=== PATIENT | female | born 1995 | race African-American/Black ===

== ENCOUNTER 2019-08-13 11:07 | Outpatient (CLI) | payer OTHER ==
--- NOTE | 2019-08-14 14:19 | NM ---
RADIOIODINE THYROID UPTAKE AND SCAN: 08/14/19 HISTORY: 23-year-old female with thyrotoxicosis, unspecified without thyrotoxic crisis or storm. Hyperthyroidi sm. High free T4 and low THS. RADIOPHARMACEUTICAL: 222 Microcuries of Iodine 123 administered orally. FINDINGS: Planar anterior and anterior oblique images of the thyroid gland were obtained. There is homogeneous increased uptake in both lobes of the thyroid gland without focal cold or hot nodules. The 24 hour uptake measures 57% (normal 10-30%). IMPRESSION: Hyperthyroid Graves disease. POS: AH
== END 2019-08-13 11:08 | disposition home or self-care (01) ==
LOC: NM 11:07
PROVIDERS: ATTEND Internal Medicine Endocrinology, Diabetes & Metabolism
DX: E05.00 Thyrotoxicosis with diffuse goiter without thyrotoxic crisis or storm (principal)
CPT/HCPCS: 78014; A9516

== ENCOUNTER 2019-11-11 12:46 | Outpatient (CLI) | payer OTHER ==
[2019-11-11 13:18] LABS: BHCG - Serum Negative (NEGATIVE); Pregs Control Background? CLEAR/WHITE (CLR/WHITE); Pregs Control Bar Appear? YES (CONTROL BAR)
--- NOTE | 2019-11-11 13:47 | NM ---
Radioiodine thyroid treatment for thyrotoxicosis HISTORY: Hyperthyroidism. FINDINGS: After explaining the procedure, including risks, routine precautions, and alternative treat ments, patient was carefully given a capsule containing 14.5 mCi iodine-131, p.o. The patient ingested the capsule without difficulty and was monitored for approximately 20 minutes pr ior to discharge. She will follow-up clinically with Dr. Lubin.
== END 2019-11-11 12:47 | disposition home or self-care (01) ==
LOC: NM 12:46
PROVIDERS: ATTEND Internal Medicine Endocrinology, Diabetes & Metabolism
DX: Z32.00 Encounter for pregnancy test, result unknown (principal); E05.90 Thyrotoxicosis, unspecified without thyrotoxic crisis or storm
CPT/HCPCS: 36415; 79005; 84703; A9517